=== PATIENT | female | born 1950 | race Caucasian/White ===

== ENCOUNTER → 2021-07-03 | Outpatient (CLI) | payer MEDICARE, BC ==
--- NOTE | 2021-07-03 17:21 | RAD ---
3 views of left knee dated 07/03/2021. No comparison available. CLINICAL INDICATION: Knee pain and swelling. FINDINGS: 3 views left knee show normal bony alignment. No displaced fracture. Mild tricompartmental hypertroph ic change with small marginal osteophytes. There is asymmetric medial joint space narrowing. Small to moderate size joint effusion. No definite loose body. IMPRESSION: 1. No acute radiographic abnormality. 2. 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 3. Moderate size joint effusion. If there is clinical concern for occult fracture or internal derange ment, MRI would better evaluate. Electronically signed by: Khai Dao MD (07/03/2021 5:19 PM) LUIS ALBERTO
== END ==
LOC: RAD 17:00
PROVIDERS: ATTEND Specialist
DX: M17.12 Unilateral primary osteoarthritis, left knee (principal); M25.462 Effusion, left knee; M25.762 Osteophyte, left knee; M25.862 Other specified joint disorders, left knee
CPT/HCPCS: 73562